=== PATIENT | female | born 1970 | race Caucasian/White ===

== ENCOUNTER 2018-05-05 14:25 | Inpatient (IN) ==
[2018-05-05] MEDS ORDERED: LACTATED RINGERS 1,000 ML IV ONE (14:50)
[2018-05-05] MEDS ORDERED: CYCLOBENZAPRINE 10 MG TABLET PO ONE (14:50)
[2018-05-05] MEDS ORDERED: ONDANSETRON 4 MG/2 ML VIAL IV ONE (14:50)
--- NOTE | 2018-05-05 14:52 | Emergency Department Note ---
General Adult HPI - General Chief complaint: Extremity Problem,Nontraumatic Stated complaint: body aches Time Seen by Provider: 05/05/18 14:38 Source: patient Mode of arrival: ambulatory Limitations: no limitations - History of Present Illness HPI Narrative: This patient complains of a lot of joint pain and nausea. She is unable to keep any of her medicines down recently. A lot of this started when a cold front came through. She had blood work done recently at [facility] for an arthritis panel which we will try to locate. Today she is complaining mainly of pain in her hips and knees and hands. Seems to be symmetrical. No abdominal pain. - Related Data Home Medications Medication Instructions Recorded Confirmed ascorbic acid (vitamin C) 1,000 mg 3 g PO QDAY tab 01/27/16 02/24/16 tablet baclofen 10 mg tablet 10 mg PO Q6H PRN tab 01/27/16 02/24/16 cyclobenzaprine 10 mg tablet 10 mg PO Q8H PRN 01/27/16 02/24/16 eletriptan HBr 20 mg tablet 20 mg PO ONCE 01/27/16 02/24/16 ferrous sulfate 325 mg (65 mg 325 mg PO QDAY tab 01/27/16 02/24/16 iron) tablet lidocaine 5 % topical patch 5 % TRANSDERMA patch 01/27/16 02/24/16 omeprazole 40 mg capsule,delayed 40 mg PO QDAY 01/27/16 02/24/16 release polyethylene glycol 3350 17 17 g PO QHS each 01/27/16 02/24/16 gram/dose oral powder promethazine 25 mg tablet 25 mg PO TID PRN tab 01/27/16 02/24/16 venlafaxine ER 37.5 mg 37.5 mg PO BID cap 01/27/16 02/24/16 capsule,extended release 24 hr Allergies Allergy/AdvReac Type Severity Reaction Status Date / Time pentazocine [From Luciano] Allergy Unknown Unknown Verified 02/24/16 09:50 tramadol Allergy Unknown Seizure Verified 02/24/16 09:50 tylenol with codeine Allergy Unknown Other Uncoded 02/24/16 09:50 Review of Systems All systems ED: reviewed and negative except as stated. Past Medical History - Past Medical History Medical history: Reports: non-contributory, arthritis, fibromyalgia - Social History smoking status: Never smoker Physical Exam All of the patient's joints seem to be tender. Limitations: no limitations General appearance: alert, anxious Head: atraumatic Eye: Present: normal appearance ENT: normal exam Neck: Present: normal inspection Chest: Present: normal inspection Respiratory: Present: normal lung sounds bilaterally Cardiovascular: Present: regular rate, normal rhythm, normal heart sounds Abdominal: Present: soft. Absent: distention, tenderness Neurological: Present: alert Psychiatric: Present: normal affect, normal mood Skin: Present: warm, dry, intact Course Vital Signs Temperature 96.7 F L 05/05/18 14:26 Pulse Rate 111 H 05/05/18 14:26 Respiratory Rate 14 05/05/18 14:26 Blood Pressure 147/98 05/05/18 14:26 Pulse Oximetry (%) 97 05/05/18 14:26 Temperature 96.7 F L 05/05/18 14:26 Pulse Rate 111 H 05/05/18 14:26 Respiratory Rate 14 05/05/18 14:26 Blood Pressure 147/98 05/05/18 14:26 Pulse Oximetry (%) 97 05/05/18 14:26 Medical Decision Making - [facility] Narrative Medical decision making narrative: This patient's sodium was 110 apparently it was 138 1 week ago. This patient has some lactated Ringer started and will be admitted to the ICU by Dr. Jorge who plans to give her hypertonic saline because of her confusion. - Lab Data Lab results reviewed: Yes I reviewed the patient's lab results. Result diagrams: 05/05/18 15:00 05/05/18 15:00 Lab Results 05/05/18 05/05/18 Range/Units 15:00 15:00 WBC 16.5 H (4.5-11.0) K/mcL RBC 4.29 (4.00-5.20) M/mcL Hgb 13.0 (12.0-15.0) g/dL Hct 38.3 (36.0-48.0) % MCV 89.2 (80.0-100.0) fL MCH 30.4 (26.0-34.0) pg MCHC 34.1 (31.0-36.0) g/dL RDW 13.8 (11.5-14.5) % Plt Count 479 H (140-440) K/mcL MPV 7.9 (7.4-10.4) fL Gran % 87.5 H (38.0-78.0) % Lymph % (Auto) 7.5 L (15.5-49.0) % [place] % (Auto) 4.9 (1.0-12.0) % Eos % (Auto) 0 (0.0-7.0) % Baso % (Auto) 0.1 (0.0-2.0) % Gran # 14.4 H (1.8-8.0) K/mcL Lymph # (Auto) 1.2 L (1.5-4.8) K/mcL [place] # (Auto) 0.8 (0.1-0.9) K/mcL Eos # (Auto) 0 (0.0-0.7) K/mcL Baso # (Auto) 0 (0.0-0.3) K/mcL Sodium 110 L* (133-145) mmol/L Potassium 3.7 (3.3-5.1) mmol/L Chloride 73 L (96-108) mmol/L Carbon Dioxide 17 L (22-30) mmol/L Anion Gap 20.0 H (8-16) BUN 4 L (6-20) mg/dl Creatinine 0.8 (0.6-1.1) mg/dl GFR Calculation 86 Glucose 140 H (70-105) mg/dL Calcium 9.1 (8.6-10.4) mg/dl Total Bilirubin 0.5 (0.0-1.0) mg/dL AST 73 H (0-37) U/l ALT 50 H (0-40) U/l Alkaline Phosphatase 123 H (39-117) U/L C-React Prot High Sens 3.7 H (1.0-3.0) mg/L Total Protein 6.7 (5.9-8.4) gm/dL Albumin 4.3 (3.2-5.2) gm/dL Globulin 2.4 (2.2-3.7) gm/dL Albumin/Globulin Ratio 1.8 (1.0-2.3) Disposition Pt seen by [employer]/PA only: No Clinical Impression: Hyponatremia Disposition: Xfer As Inpt ([facility]) Referrals: Kelsi Heredia MD [Primary Care Provider] - Time of Disposition: 16:08
[2018-05-05 15:30] LABS: Basophils # (Auto) 0 K/mcL (0.0-0.3); Basophils % (Auto) 0.1 % (0.0-2.0); Eosinophils # (Auto) 0 K/mcL (0.0-0.7); Eosinophils % (Auto) 0 % (0.0-7.0); Granulocytes % (Auto) 87.5 % (38.0-78.0); Lymphocytes # (Auto) 1.2 K/mcL (1.5-4.8); Lymphocytes % (Auto) 7.5 % (15.5-49.0); Mean Cell Volume 89.2 fL (80.0-100.0); Mean Corpuscular HGB Conc 34.1 g/dL (31.0-36.0); Mean Corpuscular Hemoglobin 30.4 pg (26.0-34.0); Monocytes # (Auto) 0.8 K/mcL (0.1-0.9); Monocytes % (Auto) 4.9 % (1.0-12.0); Platelet Count 479 K/mcL (140-440); RBC 4.29 M/mcL (4.00-5.20); Red Cell Distribution Width 13.8 % (11.5-14.5)
[2018-05-05 15:51] LABS: ALT/SGPT 50 U/l (0-40); Albumin 4.3 gm/dL (3.2-5.2); Albumin/Globulin Ratio 1.8 (1.0-2.3); Alkaline Phosphatase 123 U/L (39-117); Blood Urea Nitrogen 4 mg/dl (6-20); CRP,High Sensitivity 3.7 mg/L (1.0-3.0)
[2018-05-05] MEDS ORDERED: PROMETHAZINE 25 MG/ML VIAL IV ONE (16:09)
[2018-05-05 16:16] LABS: Appearance,Urine CLEAR; Bacteria,Urine MOD /hpf (0); Bilirubin,Urine NEG (NEG); Color,Urine YELLOW; Glucose,Urine (UA) 50 mg/dL (NEG); Leukocyte Esterase,Urine NEG /uL (NEG); Mucus,Urine FEW /hpf (0); Protein,Urine 30 mg/dL (NEG); Specific Gravity,Urine 1.013 (1.000-1.035); Urine Blood NEG mg/dL (<0.03); Urine RBC 1 /hpf (0-1); Urine Squamous Epithelial Cell 7 /hpf (0-4); Urine WBC 2 /hpf (0-4)
[2018-05-05] MEDS ORDERED: NITROGLYCERIN 0.4 MG TAB.SUBL SL PRN ×2 (17:09→17:56)
[2018-05-05 17:11] LABS: Osmolality,Urine 399 mOsm/kg (80-1000)
--- NOTE | 2018-05-05 17:29 | Cat Scan Report ---
CLINICAL INFORMATION: Elevated creatinine and decreased mental status COMPARISON: None. TECHNIQUE: 2.5 mm helical slices were obtained in the skull base to vertex. Following reconstruction, axial reformatted images were reviewed at bone and parenchymal windows. The exam was performed using radiation dose optimization techniques including, but not limited to, automated exposure control, adjustment of the mA and/or kV according to patient size and use of iterative reconstruction technique. FINDINGS: The ventricles, sulci, fissures, and cisterns are globally decreased suggesting global cerebral swelling. No extra-axial fluid collections are identified. The cerebrum, brainstem and cerebellum are unremarkable. There is no evidence of hemorrhage, mass effect, or edema. Bone windows show no osseous abnormality. IMPRESSION: Mild global cerebral swelling likely related to hyponatremia Interpreted and Authenticated by: Donte Rivera 05/05/18
--- NOTE | 2018-05-05 17:39 | Nephrology Consult Note ---
History of Present Illness - Reason for Consult Patient information: Note initiated : 05/05/18 at 5:37 pm Service Date, if different from initiated Date: [] Patient: Clare Kaur 48 y/o F admitted on for body aches. Consult date: 05/05/18 hyponatremia Requesting physician: Jesus Jorge - Chief Complaint Pain - History of Present Illness Clare Kaur is a 48-year-old female with fibromyalgia (chronic diffuse musculoskeletal pain) presented to ED for nausea and pain today and found to have electrolyte abnormalities as hyponatremia and metabolic acidosis. She received 1 L LR in ED and admitted. Nephrology consultation requested for hyponatremia. Her most recent serum sodium was 138 on 04/27/18. Most of the history was obtained from her in ED. Review of Systems Constitutional: headache(s), lethargy Nose, mouth and throat: no nasal congestion, no sore throat Cardiovascular: chest pain, no palpatations Respiratory: no cough, no hemoptysis Gastrointestinal: no constipation, no diarrhea Genitourinary: no dysuria, no hematuria Musculoskeletal: back pain, neck pain Integumentary: no rash, no wounds Neurological: no confusion, no focal weakness Psychiatric: depression, no anxiety Endocrine: no cold intolerance, no heat intolerance Hematologic/Lymphatic: no easy bleeding, no easy bruising Allergic/Immunologic: no tongue swelling, no throat swelling, no uticaria Past History Past medical history: Medical History Abdominal pain (Acute) Arthralgia of multiple joints (Chronic) Elevated rheumatoid factor (Chronic) Obesity (Chronic) Constipation (Chronic) Endometriosis (Chronic) Fibromyalgia (Chronic) Yeast infection (Chronic) Chronic pain syndrome (Chronic) Depression (Chronic) Hx of endoscopy (Chronic) Past surgical history: Social History No Social History Section defined Past family history: Family History paternal grandmother Malignant neoplasm of colon paternal grandfather Malignant neoplasm of colon Malignant neoplasm of prostate maternal grandmother Alzheimer's disease maternal grandfather Myocardial Infarction Past social history: Social History No Social History Section defined Medications and Allergies Home Medications Medication Instructions Recorded Confirmed Type baclofen 10 mg tablet 10 mg PO Q6H PRN tab 01/27/16 05/05/18 History ferrous sulfate 325 mg (65 mg 325 mg PO QDAY tab 01/27/16 05/05/18 History iron) tablet lidocaine 5 % topical patch 5 % TRANSDERMA DAILY patch 01/27/16 05/05/18 History omeprazole 40 mg capsule,delayed 40 mg PO QDAY 01/27/16 05/05/18 History release promethazine 25 mg tablet 25 mg PO TID PRN tab 01/27/16 05/05/18 History Allergies Allergy/AdvReac Type Severity Reaction Status Date / Time pentazocine [From Talwin] Allergy Unknown Unknown Verified 02/24/16 09:50 tramadol Allergy Unknown Seizure Verified 02/24/16 09:50 tylenol with codeine Allergy Unknown Other Uncoded 02/24/16 09:50 Exam - Vital Signs Vital signs: Temp Pulse Resp BP Pulse Ox 96.7 F L 95 H 20 128/67 97 05/05/18 14:26 05/05/18 16:43 05/05/18 16:43 05/05/18 16:43 05/05/18 16:43 - General Appearance General appearance: chronically ill, fatigue EENT: mucous membranes moist Neck: supple Respiratory: clear Cardiology: no edema Gastrointestinal: no tenderness Integumentary: warm and dry Neurologic: no focal deficit, alert and oriented x3 Musculoskeletal: no deformities Psychiatric: depressed, cooperative Results - Lab Results 05/05/18 15:00 05/05/18 16:36 Most recent lab results Calcium 9.1 mg/dl (8.6-10.4) 05/05/18 15:00 Assessment and Plan (1) Hyponatremia Hyponatremia, acute, possibly symptomatic, present on arrival. Work up: Labs (05/05/18 at 15:00): Serum Sodium 110, Urine Osmolality 399, Urine Sodium 60. Labs (05/05/18 at 16:36): Serum Sodium 115, Serum Osmolality 239 Urinalysis (05/05/18): Yellow, Clear, pH 6.0, SG 1.013, Protein 30, occult blood negative. Altered mental status reported in ED. Neurologic examination unremarkable at the time of my evaluation. No obvious etiology like intoxication. Initial work up consistent with SIADH with elevated urine osmolality and urine sodium, but improvement with LR. Recommendations: 1/2 Ns at 100 ml hour and follow up BMP every 4-6 hours. Target correction rate of 10 mEq/24hr. Status: Acute Priority: High (2) Metabolic acidosis at 15:00: High anion gap Serum AG = 110 - (73 + 17) = 20 DELTA AG/DELTA HCO3 RATIO 20-12/24-17 = 8/7 at 16:36: Normal anion gap, metabolic acidosis improved Serum AG = 115 - (81 + 21) = 13 Serum osmolal gap 0.96 Status: Acute Priority: High
[2018-05-05] MEDS ORDERED: 0.9 % SODIUM CHLORIDE 1,000 ML IV SCH ×2 (17:56→18:14)
[2018-05-05] MEDS ORDERED: ASPIRIN 81 MG TAB.CHEW CHEWED ONE (17:56)
[2018-05-05] MEDS ORDERED: NALOXONE HCL 0.4 MG/ML VIAL IV PRN (17:56)
[2018-05-05] MEDS ORDERED: ONDANSETRON 4 MG/2 ML VIAL IV PRN (17:56)
[2018-05-05] MEDS ORDERED: ACETAMINOPHEN 325 MG TABLET PO PRN (17:56)
[2018-05-05] MEDS ORDERED: ASPIRIN 81 MG TAB.CHEW ONE (17:58)
[2018-05-05] MEDS ORDERED: NITROGLYCERIN 0.4 MG TAB.SUBL SL ONE (17:58)
[2018-05-05] MEDS ORDERED: NITROGLYCERIN 1 GM OINT.TOP ONE (18:06)
[2018-05-05 18:09] LABS: Blood Urea Nitrogen 4 mg/dl (6-20); Uric Acid 3.2 mg/dL (2.5-8.0)
[2018-05-05] MEDS ORDERED: POTASSIUM CHLORIDE 40 MEQ in DEXTROSE 5% IN WATER 500 ML IV ONE (18:31)
[2018-05-05] MEDS ORDERED: 0.45 % SODIUM CHLORIDE 1,000 ML IV SCH (18:45)
[2018-05-05] MEDS ORDERED: MAG HYDROX/AL HYDROX/SIMETH 30 ML ORAL.SUSP PO PRN (19:06)
[2018-05-05] MEDS: PIPERACILLIN SODIUM/TAZOBACTAM 3.375 GM in DEXTROSE 5% IN WATER 50 ML IV SCH (19:11)
--- NOTE | 2018-05-05 19:11 | Ultrasound Report ---
CLINICAL INFORMATION: Increased LFTs COMPARISON: None. FINDINGS: Liver is normal in size, configuration and echotexture without focal lesion. The gallbladder is surgically absent. Common bile is normal caliber 6 mm. Pancreas is normal. No free fluid IMPRESSION: Normal liver, bile ducts and pancreas Interpreted and Authenticated by: Donte Rivera 05/05/18
--- NOTE | 2018-05-05 19:32 | XRay Report ---
CLINICAL INFORMATION: Chest pain COMPARISON: None. FINDINGS: Heart size, mediastinum and pulmonary vessels are normal. There is minimal bibasilar atelectasis. No infiltrates or effusions. Bones and soft tissues normal IMPRESSION: Minimal bibasilar atelectasis Interpreted and Authenticated by: Donte Rivera 05/05/18
[2018-05-05] MEDS ORDERED: POTASSIUM CHLORIDE 20 MEQ/10 ML VIAL IV ONE (19:43)
[2018-05-05 19:48] LABS: Blood Urea Nitrogen 3 mg/dl (6-20)
[2018-05-05] MEDS: PANTOPRAZOLE 40 MG VIAL IV SCH (19:50)
[2018-05-05] MEDS ORDERED: DEXTROSE 5% IN WATER 1,000 ML IV SCH (20:45)
--- NOTE | 2018-05-05 21:01 | Internal Med History&Physical ---
Medical - H&P: HPI Patient information: Note initiated : 05/05/18 at 8:57 pm Service Date, if different from initiated Date: [] Patient: Clare Kaur a 48 y/o F admitted on 05/05/18 for body aches. Chief Complaint: [] History of present illness: Ms. Kaur is a 48 year old F she has a history of fibromyalgia, that gets worse with changes in weather pattern according to the patient as well as her . The patient presents to the hospital today with not feeling well for the last week or so. The patient has had decreased oral intake for the last couple of days. Today the noticed that in addition to her usual exacerbation of pain due to fibromyalgia she was also altered. According to the she has a history of low sodium values and sometimes gets altered when that happens he therefore brought the patient to the emergency room for further evaluation. In the emergency room the patient was noted to be in significant pain and did not provide much history to myself or to the ER provider. Much of the history was obtained by talking to the patient's . The patient during my evaluation complained about severe substernal chest pain, this pain had started after she had presented to the ED on talking to the patient and , EKG showed T-wave inversions in lead I and aVL, no ST segment elevation. The patient had significantly low sodium at 110, potassium was 3.7, bicarb 17 creatinine 0.8 and glucose at 140. Her anion gap was 20. The patient had elevated CRP her WBC count was 16 hemoglobin 13 platelets 479, pro calcitonin was negative. Given that she had some confusion and acutely low- sodium she was admitted to the hospital for further management. The patient had a normal sodium 1 week ago. Later in the hospital the patient chest pain continued, her troponin was noted to be elevated at 0.2, patient received aspirin and sublingual nitro as well as a nitro patch the patient's symptoms gradually improved to a point where she had no longer any chest pain. Patient underwent a repeat troponin that was 0.17. EKG unchanged since admission. Case was discussed with Dr. Kaur inspector paper products in [place] who advised that patient does not seem to have an acute coronary event may have had a coronary spasm. But in light of chest pain with mildly elevated troponins the stratification and further testing is warranted. Given that we do not have nuclear stress test in this facility, he advised to consider some kind for testing. I informed him that we do have echocardiogram as well as CT coronary angiogram. He noted that if these tests are negative and the patient does not have any further chest pain then she could follow-up as an outpatient with cardiology for further evaluation. Should the patient develop further chest pain then he would reconsider transferring the patient for an urgent cath. Nephrology was consulted for management of hyponatremia. ROS unobtainable: due to mental status Medical - H&P: PMH Medical history: Medical History Abdominal pain (Acute) Arthralgia of multiple joints (Chronic) Elevated rheumatoid factor (Chronic) Obesity (Chronic) Constipation (Chronic) Endometriosis (Chronic) Fibromyalgia (Chronic) Yeast infection (Chronic) Chronic pain syndrome (Chronic) Depression (Chronic) Hx of endoscopy (Chronic) Surgical history: Past Surgical History History of bilateral tubal ligation (Chronic) Hx of exploratory laparotomy (Chronic) Hx of hysterectomy with oophorectomy (Chronic) Pertinent family history: Family History paternal grandmother Malignant neoplasm of colon paternal grandfather Malignant neoplasm of colon Malignant neoplasm of prostate maternal grandmother Alzheimer's disease maternal grandfather Myocardial Infarction Medical - H&P: Meds Home Medications Medication Instructions Recorded Confirmed Type baclofen 10 mg tablet 10 mg PO Q6H PRN tab 01/27/16 05/05/18 History ferrous sulfate 325 mg (65 mg 325 mg PO QDAY tab 01/27/16 05/05/18 History iron) tablet lidocaine 5 % topical patch 5 % TRANSDERMA DAILY patch 01/27/16 05/05/18 History omeprazole 40 mg capsule,delayed 40 mg PO QDAY 01/27/16 05/05/18 History release promethazine 25 mg tablet 25 mg PO TID PRN tab 01/27/16 05/05/18 History Allergies Allergy/AdvReac Type Severity Reaction Status Date / Time pentazocine [From Luciano] Allergy Unknown Unknown Verified 02/24/16 09:50 tramadol Allergy Unknown Seizure Verified 02/24/16 09:50 tylenol with codeine Allergy Unknown Other Uncoded 02/24/16 09:50 Medical - H&P: Exam - Constitutional Vitals: Temp Pulse Resp BP Pulse Ox 99.2 F H 81 16 108/73 100 05/05/18 19:53 05/05/18 17:52 05/05/18 20:31 05/05/18 20:31 05/05/18 20:31 Exam: GENERAL: The patient is a well-developed, well-nourished in moderate distress. Is alert and oriented x3. VITAL SIGNS: Reviewed and as noted elsewhere. HEENT: Head is normocephalic and atraumatic. Extraocular muscles are intact. Pupils are equal, round, and reactive to light. Nares appeared normal. Mouth appears any without lesions. Mucous membranes are dry. NECK: Normal to inspection, Supple, No lymphadenopathy or thyromegaly. LUNGS: Air entry equal on both sides, no wheezing, crackles or rhonchi noted. No accessory muscles of respiration HEART: Regular rate and rhythm normal, S1 and S2 heard, no Gallop, S3 or Rub Noted, No Gross murmur heard. ABDOMEN: Soft, epigastric tenderness present, no guarding no rigidity no rebound. Abdomen is nondistended. Positive bowel sounds. No hepatosplenomegaly was noted. EXTREMITIES: No cyanosis, clubbing, rash, lesions or edema. NEUROLOGIC: Cranial nerves II through XII are grossly intact. Motor and Sensory System Grossly Intact PSYCHIATRIC: Normal affect, Normal Mood. Appropriate Behavior. She did appear in distress SKIN: No ulceration or wounds noted, No jaundice, No rash noted. Medical - H&P: Reslt - Labs CBC & Chem 7: 05/05/18 15:00 05/05/18 18:48 Labs: Short CBC 05/05/18 Range/Units 15:00 WBC 16.5 H (4.5-11.0) K/mcL Hgb 13.0 (12.0-15.0) g/dL Hct 38.3 (36.0-48.0) % Plt Count 479 H (140-440) K/mcL BMP 05/05/18 05/05/18 05/05/18 15:00 16:36 18:48 Sodium 110 L* 115 L* 117 L* Potassium 3.7 3.7 3.6 Chloride 73 L 81 L 81 L Carbon Dioxide 17 L 21 L 21 L BUN 4 L 4 L 3 L Creatinine 0.8 0.6 0.8 Glucose 140 H 119 H 103 Calcium 9.1 9.2 9.1 Cardiac Enzymes 05/05/18 05/05/18 Range/Units 15:00 18:48 Troponin T 0.20 H* 0.17 H* (0-0.03) ng/ml Liver Function 05/05/18 Range/Units 15:00 Total Bilirubin 0.5 (0.0-1.0) mg/dL AST 73 H (0-37) U/l ALT 50 H (0-40) U/l Alkaline Phosphatase 123 H (39-117) U/L Albumin 4.3 (3.2-5.2) gm/dL Urine 05/05/18 Range/Units 15:40 Urine Color Yellow Urine Appearance Clear Urine pH 6.0 (5.0-9.0) Ur Specific [place] 1.013 (1.000-1.035) Urine Protein 30 A (NEG) mg/dL Urine Glucose (UA) 50 A (NEG) mg/dL Medical - H&P: A/P - Narrative A/P Narrative: A/P Acute chest pain- etiology? resolved with NTG, asa given, d/c ntg for now, monitor, troponin trending down, should she have recurrence of cp, will need to consider xfer to higher center. If remains asymptomatic, will get echo in AM and CT angio cornoaries. Get a1c and lipid panel in AM Hyponatremia- Na was normal 1 week ago, urine osm 399, urine sodium 60, this suggests siadh, but she also had elevated gap on presentation, denies etoh/ antifreeze consumption. osm gap not elevated, nephrology consulted, sodium to be monitored closely, goal correction 10meq over 24 hrs. I am not certain of the etiology of her acute drop at this time, her tsh is neg, cortisol is normal ADH secretion secondary to severe pain? fibromyalgia- monitor, has outpatient follow up with dr birmingham continue same patient in PCU status due to acute hyponatremia with confusion, spent > 75 mins coordinating care, monitoring labs, chart review, and rendering critical care to the patient. 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
[2018-05-05] MEDS: HEPARIN 5,000 UNIT/ML VIAL SQ SCH (21:14)
[2018-05-05] MEDS ORDERED: cefTRIAXone 1 GM VIAL IV SCH (23:00)
[2018-05-05 23:24] LABS: Blood Urea Nitrogen 4 mg/dl (6-20)
[2018-05-05] MEDS ORDERED: DESMOPRESSIN ACETATE 2 MCG in 0.9 % SODIUM CHLORIDE 50 ML IV ONE (23:29)
[2018-05-05] MEDS ORDERED: cefTRIAXone 1 GM VIAL ONE (23:47)
[2018-05-05] MEDS: 0.9 % SODIUM CHLORIDE 10 ML SYRINGE IV SCH (23:49)
[2018-05-06] MEDS: PIPERACILLIN SODIUM/TAZOBACTAM 3.375 GM in DEXTROSE 5% IN WATER 50 ML IV SCH ×4 (00:33→17:00)
[2018-05-06 02:31] LABS: Basophils # (Auto) 0 K/mcL (0.0-0.3); Basophils % (Auto) 0.4 % (0.0-2.0); Eosinophils # (Auto) 0 K/mcL (0.0-0.7); Eosinophils % (Auto) 0.2 % (0.0-7.0); Granulocytes % (Auto) 67.4 % (38.0-78.0); Lymphocytes % (Auto) 23.8 % (15.5-49.0); Mean Cell Volume 89.2 fL (80.0-100.0); Mean Corpuscular HGB Conc 33.6 g/dL (31.0-36.0); Monocytes # (Auto) 0.7 K/mcL (0.1-0.9); Monocytes % (Auto) 8.2 % (1.0-12.0); Platelet Count 348 K/mcL (140-440); RBC 3.77 M/mcL (4.00-5.20); Red Cell Distribution Width 13.8 % (11.5-14.5)
[2018-05-06 02:46] LABS: ALT/SGPT 41 U/l (0-40); Albumin 3.5 gm/dL (3.2-5.2); Albumin/Globulin Ratio 1.8 (1.0-2.3); Alkaline Phosphatase 102 U/L (39-117); Bilirubin,Direct < 0.2 mg/dL (0.0-0.3); Blood Urea Nitrogen 4 mg/dl (6-20); Estimated Average Glucose(eAG) 97 mg/dL; Gamma Glutamyl Transpeptidase 123 U/L (5-36); HDL Cholesterol 61 mg/dl (>40); LDL Cholesterol,Calculated 53 mg/dl (SEE CHART); Uric Acid 3.3 mg/dL (2.5-8.0)
[2018-05-06] MEDS ORDERED: DESMOPRESSIN ACETATE 2 MCG in 0.9 % SODIUM CHLORIDE 50 ML IV ONE (03:06)
[2018-05-06] MEDS: BACLOFEN 10 MG TABLET PO SCH ×4 (03:10→21:05)
[2018-05-06] MEDS ORDERED: DEXTROSE 5% IN WATER 1,000 ML IV SCH ×3 (03:20→06:52)
[2018-05-06] MEDS: LIDOCAINE 5 GM CREAM.TOP TOPICAL SCH ×2 (03:52→10:47)
[2018-05-06] MEDS: PROMETHAZINE 25 MG/ML VIAL IV PRN ×3 (03:52→22:01)
[2018-05-06] MEDS ORDERED: ACETAMINOPHEN 1,000 MG/100 ML BOTTLE IV PRN ×2 (05:52→12:26)
[2018-05-06] MEDS: 0.9 % SODIUM CHLORIDE 10 ML SYRINGE IV SCH ×3 (06:05→21:07)
[2018-05-06] MEDS ORDERED: LORazepam 2 MG/ML VIAL IV PRN (06:11)
--- NOTE | 2018-05-06 06:39 | Nephrology Progress Note ---
Subjective Patient information: Note initiated : 05/06/18 at 6:37 am Clare Kaur is a 48-year-old female with fibromyalgia (chronic diffuse musculoskeletal pain) admitted on 05/05/18. Nephrology consultation requested for hyponatremia. Chief Complaint: Pain. Principal diagnosis: Hyponatremia Interval history: Improvement of hyponatremia Pertinent ROS: Pain Weakness Objective - Vital Signs Vital signs: Vital Signs Temp Pulse Resp BP BP Pulse Ox 05/06/18 06:00 21 126/84 97 05/06/18 05:00 16 101/73 97 05/06/18 04:00 19 125/77 98 05/06/18 03:00 16 96/68 97 05/06/18 02:01 17 95/66 96 05/06/18 01:01 16 99/67 93 05/06/18 00:34 18 112/78 96 05/06/18 00:01 98.8 F 17 87/59 95 05/06/18 00:00 96 05/05/18 23:31 18 88/61 94 05/05/18 23:01 16 90/62 94 05/05/18 22:30 17 92/70 94 05/05/18 22:01 17 93/62 96 05/05/18 21:31 17 97/64 99 05/05/18 21:01 18 99/68 97 05/05/18 21:00 20 99/68 96 05/05/18 20:31 16 108/73 100 05/05/18 20:16 16 106/95 05/05/18 20:00 19 107/72 99 05/05/18 19:54 21 105/70 98 05/05/18 19:53 99.2 F H 20 105/70 97 05/05/18 18:30 98 05/05/18 18:11 27 H 120/75 05/05/18 18:08 99 F 20 116/80 100 05/05/18 18:07 99 F 20 116/80 100 05/05/18 18:06 23 H 122/97 100 05/05/18 18:00 28 H 119/93 96 05/05/18 17:52 81 27 H 116/80 100 05/05/18 17:40 96.7 F L 95 H 20 147/98 97 05/05/18 16:43 95 H 20 128/67 97 05/05/18 14:26 96.7 F L 111 H 14 147/98 97 Intake and Output 05/05/18 05/06/18 05/06/18 21:59 05:59 13:59 Intake Total 1205 / 1205 611.0 / 611.0 100 / 100 Output Total 2130 / 2130 1555 / 1555 55 / 55 Balance -925 / -925 -944.0 / -944.0 45 / 45 Intake: IV 1205 / 1205 151.0 / 151.0 100 / 100 Sodium Chloride 0.45% 1,000 ml 155 / 155 @ 100 mls/hr IV .Q10H [facility] Rx#: [id number] Ddavp 2 Mcg In Sodium Chloride 101.0 / 101.0 0.9% 50 ml @ 200 mls/hr IV ONCE ONE Rx#:[id number] Lactated Ringers 1,000 ml @ 1000 / 1000 Wide Open IV BOLUS ONE Rx#: [id number] Zosyn 3.375 gm In Dextrose 5% 50 / 50 50 / 50 in Water 50 ml @ 100 mls/hr IV Q6H [facility] Rx#:[id number] Oral 460 / 460 Output: Urine Catheter Amount 1880 / 1880 1555 / 1555 55 / 55 Void Amount 250 / 250 # of times incontinent of urine 0 / 0 Other: Meal 1/2 banana # Voids 1 Weight 174 lb 9.6 oz Intake & Output: Intake & Output 05/05/18 05/06/18 05/06/18 21:59 05:59 13:59 Intake Total 1205 / 1205 611.0 / 611.0 100 / 100 Output Total 2130 / 2130 1555 / 1555 55 / 55 Balance -925 / -925 -944.0 / -944.0 45 / 45 Weight 174 lb 9.6 oz Intake: IV 1205 / 1205 151.0 / 151.0 100 / 100 Sodium Chloride 0.45% 1,000 ml 155 / 155 @ 100 mls/hr IV .Q10H [facility] Rx#: [id number] Ddavp 2 Mcg In Sodium Chloride 101.0 / 101.0 0.9% 50 ml @ 200 mls/hr IV ONCE ONE Rx#:[id number] Lactated Ringers 1,000 ml @ 1000 / 1000 Wide Open IV BOLUS ONE Rx#: [id number] Zosyn 3.375 gm In Dextrose 5% 50 / 50 50 / 50 in Water 50 ml @ 100 mls/hr IV Q6H [facility] Rx#:[id number] Oral 460 / 460 Output: Urine Catheter Amount 1880 / 1880 1555 / 1555 55 / 55 Void Amount 250 / 250 # of times incontinent of urine 0 / 0 Other: Meal 1/2 banana # Voids 1 - General Appearance General appearance: chronically ill, fatigue EENT: mucous membranes moist Neck: supple Respiratory: no kyphosis Cardiology: no edema, regular rate, regular rhythm Gastrointestinal: no tenderness Integumentary: no rash, warm and dry Neurologic: no focal deficit, alert and oriented x3 Musculoskeletal: no deformities Psychiatric: depressed, cooperative - Lab 05/06/18 02:00 05/06/18 06:00 Most recent lab results Calcium 8.8 mg/dl (8.6-10.4) 05/06/18 02:00 Phosphorus 2.5 mg/dL (2.7-4.5) L 05/06/18 02:00 Magnesium 1.8 mg/dL (1.6-2.5) 05/06/18 02:00 Assessment and Plan (1) Hyponatremia Hyponatremia, acute, possibly initially symptomatic, present on arrival, improved. Initial work up consistent with SIADH with elevated urine osmolality and urine sodium. No obvious etiology like intoxication. Avoid NS in infusions. Anticipate improvement. Nephrology will sign off. Status: Acute Priority: Medium (2) Metabolic acidosis Status: Resolved Priority: Medium
[2018-05-06 06:45] LABS: Blood Urea Nitrogen 6 mg/dl (6-20)
[2018-05-06] MEDS: PANTOPRAZOLE 40 MG VIAL IV SCH ×2 (07:43→16:59)
[2018-05-06] MEDS: HEPARIN 5,000 UNIT/ML VIAL SQ SCH ×2 (10:58→21:06)
[2018-05-06 11:13] LABS: Blood Urea Nitrogen 6 mg/dl (6-20)
[2018-05-06] MEDS ORDERED: SUMAtriptan SUCCINATE 50 MG TABLET PO PRN (11:29)
[2018-05-06] MEDS ORDERED: NITROGLYCERIN 0.4 MG TAB.SUBL SL PRN (12:26)
[2018-05-06] MEDS ORDERED: MAG HYDROX/AL HYDROX/SIMETH 30 ML ORAL.SUSP PO PRN (12:26)
[2018-05-06] MEDS ORDERED: ACETAMINOPHEN 325 MG TABLET PO PRN (12:26)
[2018-05-06] MEDS ORDERED: ONDANSETRON 4 MG/2 ML VIAL IV PRN (12:26)
[2018-05-06] MEDS ORDERED: NALOXONE HCL 0.4 MG/ML VIAL IV PRN (12:26)
[2018-05-06 12:47] LABS: Amphetamine Screen,Urine NONE DETECTED (NONDETECTED); Benzodiazepines Screen,Urine NONE DETECTED (NONDETECTED); Cocaine Screen,Urine NONE DETECTED (NONDETECTED); Opiate Screen,Urine SUSPECT POSITIVE (NONDETECTED); Oxycodone, Urine Screen NONE DETECTED (NONDETECTED)
[2018-05-06 12:52] LABS: Osmolality,Urine 509 mOsm/kg (80-1000)
--- NOTE | 2018-05-06 13:28 | Internal Med Progress Note ---
Medical - PN: Subj Patient information: Note initiated : 05/06/18 at 1:26 pm Service Date, if different from initiated Date: [] Patient: Clare Kaur a 48 y/o F admitted on 05/05/18 for body aches. Chief Complaint: [] Interval history: Ms. Kaur is a 48 year old F she has a history of fibromyalgia, that gets worse with changes in weather pattern according to the patient as well as her . The patient presents to the hospital today with not feeling well for the last week or so. The patient has had decreased oral intake for the last couple of days. Today the noticed that in addition to her usual exacerbation of pain due to fibromyalgia she was also altered. According to the she has a history of low sodium values and sometimes gets altered when that happens he therefore brought the patient to the emergency room for further evaluation. In the emergency room the patient was noted to be in significant pain and did not provide much history to myself or to the ER provider. Much of the history was obtained by talking to the patient's . The patient during my evaluation complained about severe substernal chest pain, this pain had started after she had presented to the ED on talking to the patient and , EKG showed T-wave inversions in lead I and aVL, no ST segment elevation. The patient had significantly low sodium at 110, potassium was 3.7, bicarb 17 creatinine 0.8 and glucose at 140. Her anion gap was 20. The patient had elevated CRP her WBC count was 16 hemoglobin 13 platelets 479, pro calcitonin was negative. Given that she had some confusion and acutely low- sodium she was admitted to the hospital for further management. The patient had a normal sodium 1 week ago. Later in the hospital the patient chest pain continued, her troponin was noted to be elevated at 0.2, patient received aspirin and sublingual nitro as well as a nitro patch the patient's symptoms gradually improved to a point where she had no longer any chest pain. Patient underwent a repeat troponin that was 0.17. EKG unchanged since admission. Case was discussed with Dr. Kaur jewelry model maker in [place] who advised that patient does not seem to have an acute coronary event may have had a coronary spasm. But in light of chest pain with mildly elevated troponins the stratification and further testing is warranted. Given that we do not have nuclear stress test in this facility, he advised to consider some kind for testing. I informed him that we do have echocardiogram as well as CT coronary angiogram. He noted that if these tests are negative and the patient does not have any further chest pain then she could follow-up as an outpatient with cardiology for further evaluation. Should the patient develop further chest pain then he would reconsider transferring the patient for an urgent cath. Nephrology was consulted for management of hyponatremia. 05/06 Patient seen and examined, complains of generalized pain, still has bilateral lower extremity pain this is a chronic pain for her. She did not have any recurrent chest pain. Echo was done which shows low normal ejection fraction normal left ventricular size, no regional wall motion abnormalities. CT angios of the heart is pending. The patient sodium overcorrected yesterday went eyes are has 126, patient was given desmopressin and D5 water, patient's sodium back down to 119. Will reassess and have close monitoring of the changes in patient's sodium. Apparently nephrology has signed out. Pertinent ROS: cr migrane headache present Denies chest pain, palpitations Denies cough or shortness of breath Denies abdominal pain, nausea or vomiting. usama knee pain, generalized aches - Constitutional Vitals: Vital Signs Temp Pulse Resp BP Pulse Ox 98.8 F 95 H 20 139/105 100 05/06/18 12:00 05/06/18 11:02 05/06/18 12:00 05/06/18 12:00 05/06/18 12:00 Period Temp Pulse Resp BP Sys/Malik Pulse Ox Last 24 Hr 96.7 F-99.2 F 68-112 14-31 87-147/59-105 92-100 Intake and Output 05/05/18 05/06/18 05/06/18 21:59 05:59 13:59 Intake Total 1205 / 1205 611.0 / 611.0 1618 / 1618 Output Total 2130 / 2130 1555 / 1555 405 / 405 Balance -925 / -925 -944.0 / -944.0 1213 / 1213 Weight 174 lb 9.6 oz Intake & Output: Intake & Output 05/05/18 05/06/18 05/06/18 21:59 05:59 13:59 Intake Total 1205 / 1205 611.0 / 611.0 1618 / 1618 Output Total 2130 / 2130 1555 / 1555 405 / 405 Balance -925 / -925 -944.0 / -944.0 1213 / 1213 Weight 174 lb 9.6 oz Intake: IV 1205 / 1205 151.0 / 151.0 988 / 988 Sodium Chloride 0.45% 1,000 ml 155 / 155 @ 100 mls/hr IV .Q10H [facility] Rx#: [id number] Ddavp 2 Mcg In Sodium Chloride 101.0 / 101.0 0.9% 50 ml @ 200 mls/hr IV ONCE ONE Rx#:[id number] Dextrose 5% in Water 1,000 ml @ 268 / 268 75 mls/hr IV .[id number] [facility] Rx#: [id number] Lactated Ringers 1,000 ml @ 1000 / 1000 Wide Open IV BOLUS ONE Rx#: [id number] Zosyn 3.375 gm In Dextrose 5% 50 / 50 50 / 50 100 / 100 in Water 50 ml @ 100 mls/hr IV Q6H [facility] Rx#:[id number] Oral 460 / 460 630 / 630 Output: Urine Catheter Amount 1880 / 1880 1555 / 1555 405 / 405 Void Amount 250 / 250 # of times incontinent of urine 0 / 0 Other: Meal 1/2 banana Lunch Percent of Meal Consumed 50% # Voids 1 Exam: Constitutional; Afebrile, cooperative, alert, not in distress. Eyes- No icterus, , No periorbital swelling Ears- Ext ear normal, hearing normal to conversation. Neck- Midline trachea, supple Respiratory system: Air Entry equal on both sides, No crackles or wheezing, no rhonchi. CVS- Rate rhythm regular, S1,S2 heard, no gallop, no rub. 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 Medical - PN: Obj Da - Labs CBC & Chem 7: 05/06/18 02:00 05/06/18 10:17 Labs: Abnormal Lab Results 05/06/18 05/06/18 05/06/18 11:58 10:17 06:00 WBC RBC Hgb Hct Plt Count Gran % Lymph % (Auto) Gran # Lymph # (Auto) Sodium 119 L* 124 L Chloride 87 L 90 L Carbon Dioxide 20 L Anion Gap BUN Glucose 108 H 117 H Osmolality Phosphorus GGT AST ALT Alkaline Phosphatase Lactate Dehydrogenase Troponin T C-React Prot High Sens Total Protein Globulin Urine Protein Urine Glucose (UA) Urine Ketones Urine Nitrate Urine Urobilinogen Ur Squamous Epith Cells Urine Bacteria Urine Opiates Screen Suspect positive A U Marijuana (THC) Screen Suspect positive A 05/06/18 05/06/18 05/05/18 02:00 02:00 22:30 WBC RBC 3.77 L Hgb 11.3 L Hct 33.7 L Plt Count Gran % Lymph % (Auto) Gran # Lymph # (Auto) Sodium 126 L 125 L Chloride 93 L 92 L Carbon Dioxide 21 L Anion Gap BUN 4 L 4 L Glucose 113 H Osmolality Phosphorus 2.5 L GGT 123 H AST 58 H ALT 41 H Alkaline Phosphatase Lactate Dehydrogenase 261 H Troponin T C-React Prot High Sens Total Protein 5.4 L Globulin 1.9 L Urine Protein Urine Glucose (UA) Urine Ketones Urine Nitrate Urine Urobilinogen Ur Squamous Epith Cells Urine Bacteria Urine Opiates Screen U Marijuana (THC) Screen 05/05/18 05/05/18 05/05/18 18:48 18:48 16:36 WBC RBC Hgb Hct Plt Count Gran % Lymph % (Auto) Gran # Lymph # (Auto) Sodium 117 L* 115 L* Chloride 81 L 81 L Carbon Dioxide 21 L 21 L Anion Gap BUN 3 L 4 L Glucose 119 H Osmolality 239 L Phosphorus GGT AST ALT Alkaline Phosphatase Lactate Dehydrogenase Troponin T 0.17 H* C-React Prot High Sens Total Protein Globulin Urine Protein Urine Glucose (UA) Urine Ketones Urine Nitrate Urine Urobilinogen Ur Squamous Epith Cells Urine Bacteria Urine Opiates Screen U Marijuana (THC) Screen 05/05/18 05/05/18 05/05/18 15:40 15:00 15:00 WBC RBC Hgb Hct Plt Count Gran % Lymph % (Auto) Gran # Lymph # (Auto) Sodium 110 L* Chloride 73 L Carbon Dioxide 17 L Anion Gap 20.0 H BUN 4 L Glucose 140 H Osmolality Phosphorus GGT AST 73 H ALT 50 H Alkaline Phosphatase 123 H Lactate Dehydrogenase Troponin T 0.20 H* C-React Prot High Sens 3.7 H Total Protein Globulin Urine Protein 30 A Urine Glucose (UA) 50 A Urine Ketones 80 A Urine Nitrate Pos A Urine Urobilinogen 2.0 A Ur Squamous Epith Cells 7 H Urine Bacteria Mod A Urine Opiates Screen U Marijuana (THC) Screen 05/05/18 15:00 WBC 16.5 H RBC Hgb Hct Plt Count 479 H Gran % 87.5 H Lymph % (Auto) 7.5 L Gran # 14.4 H Lymph # (Auto) 1.2 L Sodium Chloride Carbon Dioxide Anion Gap BUN Glucose Osmolality Phosphorus GGT AST ALT Alkaline Phosphatase Lactate Dehydrogenase Troponin T C-React Prot High Sens Total Protein Globulin Urine Protein Urine Glucose (UA) Urine Ketones Urine Nitrate Urine Urobilinogen Ur Squamous Epith Cells Urine Bacteria Urine Opiates Screen U Marijuana (THC) Screen Meds: Medications Acetaminophen (Tylenol) 650 mg PO Q4-6HP PRN PRN Reason: PAIN/FEVER > 101 Al Hydrox/Mg Hydrox/Simethicone (Maalox) 30 ml PO Q4-6HP PRN PRN Reason: Dyspepsia Baclofen (Lioresal) 10 mg PO TID [facility] Ceftriaxone Sodium (Rocephin) 1 gm IV DAILY [facility] Heparin Sodium (Porcine) (Heparin) 5,000 unit SQ Q12 [facility] Acetaminophen (Ofirmev) 1,000 mg in 100 mls @ 200 mls/hr IV Q6HP PRN PRN Reason: PAIN/FEVER > 101 Piperacillin Sod/Tazobactam (Sod 3.375 gm/ Dextrose) 50 mls @ 100 mls/hr IV Q6H [facility] Lidocaine (Lidocaine 5% Oint) 1 dose TOPICAL DAILY [facility] Lorazepam (Ativan) 0.5 mg IV Q2HP PRN PRN Reason: ANXIETY/SEDATION Morphine Sulfate (Morphine) 4 mg IV Q1HP PRN PRN Reason: PAIN LEVEL > 6 Naloxone HCl (Narcan) 0.1 mg IV Q2MIN PRN PRN Reason: Opiate Reversal Nitroglycerin (Nitrostat) 0.4 mg SL Q5M PRN PRN Reason: Chest Pain Ondansetron HCl (Zofran) 4 mg IV Q4-6HP PRN PRN Reason: Nausea And Vomiting Pantoprazole Sodium (Protonix) 40 mg IV BIDAC [facility] Promethazine HCl (Phenergan) 12.5 mg IV Q4-6HP PRN PRN Reason: Nausea And Vomiting Sodium Chloride (Saline Flush) 10 ml IV Q8 [facility] Sumatriptan Succinate (Imitrex) 50 mg PO PRN PRN PRN Reason: Migraine Headache Medical - PN: A/P - Time Spent With Patient Total time spent is greater than 50% in coordination of care (as documented) at patient's floor/unit and/or counseling patient: - Narrative A/P Narrative: A/P Acute chest pain- etiology? resolved with NTG, asa given, a1c neg for dm, lipid profile good, ldl < 70, echo neg, await coronorary angiogram CT, outpatietn cardiology eval, will start on asa 81 Hyponatremia- check utox, siadh from pain ? sodium this AM 119, had gone as high as 126, goal is 10-12meq over 24 hrs. desmopressin to avoid overcorrection. fibromyalgia- monitor, has outpatient follow up with dr birmingham continue same, lidocane ointment for topical application migraine- sumatriptan xfer to tele status regular diet full code Medical - PN: Qual - VTE Deep Vein Thrombosis/Pulmonary Embolism Present on Admission: No
[2018-05-06] MEDS ORDERED: cefTRIAXone 1 GM VIAL IV SCH (15:00)
[2018-05-06] MEDS: cefTRIAXone 1 GM VIAL IV SCH (15:14)
[2018-05-06] MEDS: SUMAtriptan SUCCINATE 50 MG TABLET PO PRN (15:15)
[2018-05-06 15:16] LABS: Blood Urea Nitrogen 5 mg/dl (6-20)
[2018-05-06] MEDS: 0.9 % SODIUM CHLORIDE 1,000 ML IV SCH (15:40)
[2018-05-06] MEDS: LORazepam 2 MG/ML VIAL IV PRN (17:50)
[2018-05-06 18:57] LABS: Blood Urea Nitrogen 6 mg/dl (6-20)
[2018-05-06] MEDS ORDERED: POTASSIUM CHLORIDE 20 MEQ PACKET PO ONE (19:00)
[2018-05-06 23:52] LABS: Blood Urea Nitrogen 5 mg/dl (6-20)
[2018-05-07] MEDS: PIPERACILLIN SODIUM/TAZOBACTAM 3.375 GM in DEXTROSE 5% IN WATER 50 ML IV SCH ×5 (00:05→23:42)
[2018-05-07] MEDS: LORazepam 2 MG/ML VIAL IV PRN ×3 (02:11→23:24)
[2018-05-07 05:24] LABS: Basophils # (Auto) 0 K/mcL (0.0-0.3); Basophils % (Auto) 0.4 % (0.0-2.0); Eosinophils # (Auto) 0.1 K/mcL (0.0-0.7); Eosinophils % (Auto) 0.7 % (0.0-7.0); Granulocytes % (Auto) 65.8 % (38.0-78.0); Lymphocytes # (Auto) 2.2 K/mcL (1.5-4.8); Lymphocytes % (Auto) 25.6 % (15.5-49.0); Mean Cell Volume 92.1 fL (80.0-100.0); Mean Corpuscular HGB Conc 33.3 g/dL (31.0-36.0); Mean Corpuscular Hemoglobin 30.7 pg (26.0-34.0); Monocytes # (Auto) 0.7 K/mcL (0.1-0.9); Monocytes % (Auto) 7.5 % (1.0-12.0); Platelet Count 326 K/mcL (140-440); RBC 3.53 M/mcL (4.00-5.20); Red Cell Distribution Width 14.2 % (11.5-14.5)
[2018-05-07] MEDS: 0.9 % SODIUM CHLORIDE 10 ML SYRINGE IV SCH ×3 (05:34→21:07)
[2018-05-07 06:08] LABS: ALT/SGPT 32 U/l (0-40); Albumin 3.3 gm/dL (3.2-5.2); Albumin/Globulin Ratio 1.8 (1.0-2.3); Alkaline Phosphatase 88 U/L (39-117); Bilirubin,Direct < 0.2 mg/dL (0.0-0.3); Blood Urea Nitrogen 5 mg/dl (6-20); Gamma Glutamyl Transpeptidase 96 U/L (5-36); Uric Acid 1.8 mg/dL (2.5-8.0)
[2018-05-07] MEDS: 0.9 % SODIUM CHLORIDE 1,000 ML IV SCH (07:13)
[2018-05-07] MEDS: PANTOPRAZOLE 40 MG VIAL IV SCH ×2 (07:14→17:32)
[2018-05-07] MEDS ORDERED: POTASSIUM PHOSPHATE 40 MEQ in DEXTROSE 5% IN WATER 500 ML IV ONE (08:00)
[2018-05-07] MEDS ORDERED: METOPROLOL TARTRATE 50 MG TABLET PO ONE (08:24)
[2018-05-07] MEDS ORDERED: METOPROLOL TARTRATE 25 MG TABLET ONE ×2 (09:36→09:37)
[2018-05-07] MEDS ORDERED: IOPAMIDOL 150 ML BOTTLE IV ONE (11:19)
[2018-05-07 12:48] LABS: Blood Urea Nitrogen 4 mg/dl (6-20)
[2018-05-07] MEDS: FUROSEMIDE 20 MG/2 ML VIAL IV SCH (12:49)
[2018-05-07] MEDS: LIDOCAINE 5% OINT TUBE 35GM TOPICAL SCH ×2 (12:49→21:28)
[2018-05-07] MEDS: BACLOFEN 10 MG TABLET PO SCH ×3 (12:49→21:06)
--- NOTE | 2018-05-07 12:54 | Internal Med Progress Note ---
Medical - PN: Subj Patient information: Note initiated : 05/07/18 at 12:51 pm Service Date, if different from initiated Date: [] Patient: Clare Kaur a 48 y/o F admitted on 05/05/18 for body aches. Chief Complaint: [] Interval history: Ms. Kaur is a 48 year old F she has a history of fibromyalgia, that gets worse with changes in weather pattern according to the patient as well as her . The patient presents to the hospital today with not feeling well for the last week or so. The patient has had decreased oral intake for the last couple of days. Today the noticed that in addition to her usual exacerbation of pain due to fibromyalgia she was also altered. According to the she has a history of low sodium values and sometimes gets altered when that happens he therefore brought the patient to the emergency room for further evaluation. In the emergency room the patient was noted to be in significant pain and did not provide much history to myself or to the ER provider. Much of the history was obtained by talking to the patient's . The patient during my evaluation complained about severe substernal chest pain, this pain had started after she had presented to the ED on talking to the patient and , EKG showed T-wave inversions in lead I and aVL, no ST segment elevation. The patient had significantly low sodium at 110, potassium was 3.7, bicarb 17 creatinine 0.8 and glucose at 140. Her anion gap was 20. The patient had elevated CRP her WBC count was 16 hemoglobin 13 platelets 479, pro calcitonin was negative. Given that she had some confusion and acutely low- sodium she was admitted to the hospital for further management. The patient had a normal sodium 1 week ago. Later in the hospital the patient chest pain continued, her troponin was noted to be elevated at 0.2, patient received aspirin and sublingual nitro as well as a nitro patch the patient's symptoms gradually improved to a point where she had no longer any chest pain. Patient underwent a repeat troponin that was 0.17. EKG unchanged since admission. Case was discussed with Dr. 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 But in light of chest pain with mildly elevated troponins the stratification and further testing is warranted. Given that we do not have nuclear stress test in this facility, he advised to consider some kind for testing. I informed him that we do have echocardiogram as well as CT coronary angiogram. He noted that if these tests are negative and the patient does not have any further chest pain then she could follow-up as an outpatient with cardiology for further evaluation. Should the patient develop further chest pain then he would reconsider transferring the patient for an urgent cath. Nephrology was consulted for management of hyponatremia. 05/06 Patient seen and examined, complains of generalized pain, still has bilateral lower extremity pain this is a chronic pain for her. She did not have any recurrent chest pain. Echo was done which shows low normal ejection fraction normal left ventricular size, no regional wall motion abnormalities. CT angios of the heart is pending. The patient sodium overcorrected yesterday went eyes are has 126, patient was given desmopressin and D5 water, patient's sodium back down to 119. Will reassess and have close monitoring of the changes in patient's sodium. Apparently nephrology has signed out. 05/07 Pt seen examined no acute issues Na 119 still, d/c IVF, start on salt tablets and laisix to see she is now polyuric again, looks like her kidneys are dumping free fluid, we had slowed this down with use of desmopressin yesterday as she was correcting too fast. anticipate correction fo sodium moving forward. CT chest cardio angio pending plan of care reviewed with pt and , Pertinent ROS: Denies headache, dizziness Denies chest pain, palpitations Denies cough or shortness of breath Denies abdominal pain, nausea or vomiting. - Constitutional Vitals: Vital Signs Temp Pulse Resp BP Pulse Ox 98.7 F 63 16 96/67 100 05/07/18 12:00 05/07/18 11:30 05/07/18 12:00 05/07/18 12:00 05/07/18 12:00 Period Temp Pulse Resp BP Sys/Malik Pulse Ox Last 24 Hr 97.4 F-98.7 F 60-116 14-27 93-153/56-115 94-100 Intake and Output 05/06/18 05/07/18 05/07/18 21:59 05:59 13:59 Intake Total 855 / 855 170 / 170 1316 / 1316 Output Total 590 / 590 470 / 470 1725 / 1725 Balance 265 / 265 -300 / -300 -409 / -409 Weight 178 lb 4.8 oz Intake & Output: Intake & Output 05/06/18 05/07/18 05/07/18 21:59 05:59 13:59 Intake Total 855 / 855 170 / 170 1316 / 1316 Output Total 590 / 590 470 / 470 1725 / 1725 Balance 265 / 265 -300 / -300 -409 / -409 Weight 178 lb 4.8 oz Intake: IV 155 / 155 50 / 50 996 / 996 Sodium Chloride 0.9% 1,000 ml @ 105 / 105 946 / 946 50 mls/hr IV .Q20H [facility] Rx#: [id number] Zosyn 3.375 gm In Dextrose 5% 50 / 50 50 / 50 50 / 50 in Water 50 ml @ 100 mls/hr IV Q6H [facility] Rx#:[id number] Oral 700 / 700 120 / 120 320 / 320 Output: Urine Catheter Amount 590 / 590 470 / 470 1725 / 1725 Other: Meal Dinner Breakfast Percent of Meal Consumed 25% 0% Feeding Ability Independent # Bowel Movements 1 Exam: Constitutional; Afebrile, cooperative, alert, not in distress. Eyes- No icterus, , No periorbital swelling Ears- Ext ear normal, hearing normal to conversation. Neck- Midline trachea, supple Respiratory system: Air Entry equal on both sides, No crackles or wheezing, no rhonchi. CVS- Rate rhythm regular, S1,S2 heard, no gallop, no rub. 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 Medical - PN: Obj Da - Labs CBC & Chem 7: 05/07/18 04:00 05/07/18 11:40 Labs: Abnormal Lab Results 05/07/18 05/07/18 05/07/18 11:40 04:00 04:00 WBC RBC 3.53 L Hgb 10.8 L Hct 32.5 L Plt Count Gran % Lymph % (Auto) Gran # Lymph # (Auto) Sodium 119 L* 119 L* Chloride 89 L 87 L Carbon Dioxide 21 L Anion Gap BUN 4 L 5 L Glucose 120 H Osmolality Uric Acid 1.8 L Calcium 8.5 L 8.4 L Phosphorus 1.8 L GGT 96 H AST ALT Alkaline Phosphatase Lactate Dehydrogenase 259 H Troponin T C-React Prot High Sens Total Protein 5.1 L Globulin 1.8 L Urine Protein Urine Glucose (UA) Urine Ketones Urine Nitrate Urine Urobilinogen Ur Squamous Epith Cells Urine Bacteria Urine Opiates Screen U Marijuana (THC) Screen 05/06/18 05/06/18 05/06/18 22:10 18:03 14:03 WBC RBC Hgb Hct Plt Count Gran % Lymph % (Auto) Gran # Lymph # (Auto) Sodium 118 L* 116 L* 116 L* Chloride 84 L 84 L 86 L Carbon Dioxide 19 L Anion Gap 7.0 L BUN 5 L 5 L Glucose 107 H 131 H 134 H Osmolality Uric Acid Calcium 8.3 L 8.5 L Phosphorus GGT AST ALT Alkaline Phosphatase Lactate Dehydrogenase Troponin T C-React Prot High Sens Total Protein Globulin Urine Protein Urine Glucose (UA) Urine Ketones Urine Nitrate Urine Urobilinogen Ur Squamous Epith Cells Urine Bacteria Urine Opiates Screen U Marijuana (THC) Screen 05/06/18 05/06/18 05/06/18 11:58 10:17 06:00 WBC RBC Hgb Hct Plt Count Gran % Lymph % (Auto) Gran # Lymph # (Auto) Sodium 119 L* 124 L Chloride 87 L 90 L Carbon Dioxide 20 L Anion Gap BUN Glucose 108 H 117 H Osmolality Uric Acid Calcium Phosphorus GGT AST ALT Alkaline Phosphatase Lactate Dehydrogenase Troponin T C-React Prot High Sens Total Protein Globulin Urine Protein Urine Glucose (UA) Urine Ketones Urine Nitrate Urine Urobilinogen Ur Squamous Epith Cells Urine Bacteria Urine Opiates Screen Suspect positive A U Marijuana (THC) Screen Suspect positive A 05/06/18 05/06/18 05/05/18 02:00 02:00 22:30 WBC RBC 3.77 L Hgb 11.3 L Hct 33.7 L Plt Count Gran % Lymph % (Auto) Gran # Lymph # (Auto) Sodium 126 L 125 L Chloride 93 L 92 L Carbon Dioxide 21 L Anion Gap BUN 4 L 4 L Glucose 113 H Osmolality Uric Acid Calcium Phosphorus 2.5 L GGT 123 H AST 58 H ALT 41 H Alkaline Phosphatase Lactate Dehydrogenase 261 H Troponin T C-React Prot High Sens Total Protein 5.4 L Globulin 1.9 L Urine Protein Urine Glucose (UA) Urine Ketones Urine Nitrate Urine Urobilinogen Ur Squamous Epith Cells Urine Bacteria Urine Opiates Screen U Marijuana (THC) Screen 05/05/18 05/05/18 05/05/18 18:48 18:48 16:36 WBC RBC Hgb Hct Plt Count Gran % Lymph % (Auto) Gran # Lymph # (Auto) Sodium 117 L* 115 L* Chloride 81 L 81 L Carbon Dioxide 21 L 21 L Anion Gap BUN 3 L 4 L Glucose 119 H Osmolality 239 L Uric Acid Calcium Phosphorus GGT AST ALT Alkaline Phosphatase Lactate Dehydrogenase Troponin T 0.17 H* C-React Prot High Sens Total Protein Globulin Urine Protein Urine Glucose (UA) Urine Ketones Urine Nitrate Urine Urobilinogen Ur Squamous Epith Cells Urine Bacteria Urine Opiates Screen U Marijuana (THC) Screen 05/05/18 05/05/18 05/05/18 15:40 15:00 15:00 WBC RBC Hgb Hct Plt Count Gran % Lymph % (Auto) Gran # Lymph # (Auto) Sodium 110 L* Chloride 73 L Carbon Dioxide 17 L Anion Gap 20.0 H BUN 4 L Glucose 140 H Osmolality Uric Acid Calcium Phosphorus GGT AST 73 H ALT 50 H Alkaline Phosphatase 123 H Lactate Dehydrogenase Troponin T 0.20 H* C-React Prot High Sens 3.7 H Total Protein Globulin Urine Protein 30 A Urine Glucose (UA) 50 A Urine Ketones 80 A Urine Nitrate Pos A Urine Urobilinogen 2.0 A Ur Squamous Epith Cells 7 H Urine Bacteria Mod A Urine Opiates Screen U Marijuana (THC) Screen 05/05/18 15:00 WBC 16.5 H RBC Hgb Hct Plt Count 479 H Gran % 87.5 H Lymph % (Auto) 7.5 L Gran # 14.4 H Lymph # (Auto) 1.2 L Sodium Chloride Carbon Dioxide Anion Gap BUN Glucose Osmolality Uric Acid Calcium Phosphorus GGT AST ALT Alkaline Phosphatase Lactate Dehydrogenase Troponin T C-React Prot High Sens Total Protein Globulin Urine Protein Urine Glucose (UA) Urine Ketones Urine Nitrate Urine Urobilinogen Ur Squamous Epith Cells Urine Bacteria Urine Opiates Screen U Marijuana (THC) Screen Meds: Medications Acetaminophen (Tylenol) 650 mg PO Q4-6HP PRN PRN Reason: PAIN/FEVER > 101 Al Hydrox/Mg Hydrox/Simethicone (Maalox) 30 ml PO Q4-6HP PRN PRN Reason: Dyspepsia Baclofen (Lioresal) 10 mg PO TID [facility] Last Admin: 05/07/18 12:49 Dose: Not Given Ceftriaxone Sodium (Rocephin) 1 gm IV DAILY [facility] Last Admin: 05/06/18 15:14 Dose: 1 gm Furosemide (Lasix) 20 mg IV DAILY [facility] Last Admin: 05/07/18 12:49 Dose: Not Given Heparin Sodium (Porcine) (Heparin) 5,000 unit SQ Q12 [facility] Last Admin: 05/06/18 21:06 Dose: 5,000 unit Acetaminophen (Ofirmev) 1,000 mg in 100 mls @ 200 mls/hr IV Q6HP PRN PRN Reason: PAIN/FEVER > 101 Piperacillin Sod/Tazobactam (Sod 3.375 gm/ Dextrose) 50 mls @ 100 mls/hr IV Q6H [facility] Last Infusion: 05/07/18 06:49 Dose: Infused Lidocaine (Lidocaine 5% Oint) 1 dose TOPICAL DAILY [facility] Last Admin: 05/07/18 12:49 Dose: Not Given Lorazepam (Ativan) 0.5 mg IV Q2HP PRN PRN Reason: ANXIETY/SEDATION Last Admin: 05/07/18 09:44 Dose: 0.5 mg Morphine Sulfate (Morphine) 4 mg IV Q1HP PRN PRN Reason: PAIN LEVEL > 6 Naloxone HCl (Narcan) 0.1 mg IV Q2MIN PRN PRN Reason: Opiate Reversal Nitroglycerin (Nitrostat) 0.4 mg SL Q5M PRN PRN Reason: Chest Pain Ondansetron HCl (Zofran) 4 mg IV Q4-6HP PRN PRN Reason: Nausea And Vomiting Pantoprazole Sodium (Protonix) 40 mg IV BIDAC [facility] Last Admin: 05/07/18 07:14 Dose: 40 mg Promethazine HCl (Phenergan) 12.5 mg IV Q4-6HP PRN PRN Reason: Nausea And Vomiting Last Admin: 05/06/18 22:01 Dose: 12.5 mg Sodium Chloride (Saline Flush) 10 ml IV Q8 [facility] Last Admin: 05/07/18 05:34 Dose: Not Given Sodium Chloride (Sodium Chloride) 1 gm PO TID [facility] Sumatriptan Succinate (Imitrex) 50 mg PO PRN PRN PRN Reason: Migraine Headache Last Admin: 05/06/18 15:15 Dose: 50 mg Medical - PN: A/P - Time Spent With Patient Total time spent is greater than 50% in coordination of care (as documented) at patient's floor/unit and/or counseling patient: - Narrative A/P Narrative: A/P Acute chest pain- etiology? resolved with NTG, asa given, a1c neg for dm, lipid profile good, ldl < 70, echo neg, await coronorary angiogram CT, outpatietn cardiology eval, will start on asa 81 Hyponatremia- THC positive on utox, but no pcp, siadh from pain ? sodium this AM 119, had gone as high as 126, goal is 10-12meq over 24 hrs, plan for 130 today. off iVF, on salt tablets and lasix, pt is diuresing well now. will see how she does. fibromyalgia- monitor, has outpatient follow up with dr birmingham continue same, lidocane ointment for topical application migraine- sumatriptan regular diet, free water restriction to 1500ml full code Medical - PN: Qual - VTE Deep Vein Thrombosis/Pulmonary Embolism Present on Admission: No
[2018-05-07] MEDS: HEPARIN 5,000 UNIT/ML VIAL SQ SCH ×2 (13:01→21:05)
[2018-05-07] MEDS: cefTRIAXone 1 GM VIAL IV SCH (13:01)
[2018-05-07] MEDS: SODIUM CHLORIDE 1 GM TABLET PO SCH ×3 (13:02→21:06)
--- NOTE | 2018-05-07 14:16 | Cat Scan Report ---
CLINICAL INFORMATION: Chest pain COMPARISON: None. TECHNIQUE: Metoprolol was administered by hospitalist as an inpatient. Please see medication orders for dosages. Five minutes before scanning, sublingual nitroglycerin spray was given. 0.625 mm noncontrast, prospectively gated images were obtained through the cardiac region. Following timing run, 100 cc of Visipaque 320 followed by 50 cc normal saline flush were administered intravenously, and 0.625 mm axial images were repeated through the cardiac region. Using retrospective gating, axial images were reconstructed at 5% increments of the R-R interval 65 through 85. CPR images were reconstructed at a [employer] cardiac IQ workstation.The exam was performed using radiation dose optimization techniques including, but not limited to, automated exposure control, adjustment of the mA and/or kV according to patient size and use of iterative reconstruction technique. FINDINGS: Left dominant coronary system appreciated with no evidence of anomalies or tunneling. The left main, LAD, all diagonal, circumflex, marginal, right, posterior descending and posterior lateral branches are all widely patent without appreciable plaque. The heart is normal in size and configuration with normal in developed chambers. Tricuspid aortic and bicuspid mitral valves appear morphologically normal. The the myocardium and pericardium are unremarkable.. The visualized thoracic aorta and pulmonary arteries are well opacified and normal in contour and caliber. Lung windows show small bilateral pleural effusions and and interstitial and patchy groundglass airspace disease within the visualized mid and lower lungs. IMPRESSION: 1. Left dominant coronary system without anomaly or tunneling. All coronaries are widely patent - no appreciable as chronic plaque 2. Heart is normal in size and morphology without focal pathology 3. The thoracic aorta and pulmonary arteries, visualized the cardiac level, are unremarkable 4. Limited visualization of the lungs (incomplete visualization of the lower lobes, inferior right middle lobe and lingula) show patchy groundglass infiltrates, mild interstitial disease and small/moderate bilateral pleural effusions. Consider: High-resolution chest CT for complete lung evaluation if pre-existing lung disease is not previously known Interpreted and Authenticated by: Donte Rivera 05/07/18
[2018-05-07] MEDS: OXYBUTYNIN CHLORIDE 5 MG TAB.XL.24H PO SCH (15:45)
[2018-05-07 17:51] LABS: Blood Urea Nitrogen 4 mg/dl (6-20)
[2018-05-07 21:59] LABS: Blood Urea Nitrogen 5 mg/dl (6-20)
[2018-05-08] MEDS: PIPERACILLIN SODIUM/TAZOBACTAM 3.375 GM in DEXTROSE 5% IN WATER 50 ML IV SCH (05:21)
[2018-05-08] MEDS: 0.9 % SODIUM CHLORIDE 10 ML SYRINGE IV SCH (05:21)
[2018-05-08 06:14] LABS: ALT/SGPT 29 U/l (0-40); Albumin 3.4 gm/dL (3.2-5.2); Albumin/Globulin Ratio 1.8 (1.0-2.3); Alkaline Phosphatase 88 U/L (39-117); Bilirubin,Direct < 0.2 mg/dL (0.0-0.3); Blood Urea Nitrogen 5 mg/dl (6-20); Gamma Glutamyl Transpeptidase 105 U/L (5-36); Uric Acid 1.6 mg/dL (2.5-8.0)
[2018-05-08] MEDS: PANTOPRAZOLE 40 MG VIAL IV SCH (07:17)
[2018-05-08] MEDS: PROMETHAZINE 25 MG/ML VIAL IV PRN (08:09)
[2018-05-08] MEDS: SUMAtriptan SUCCINATE 50 MG TABLET PO PRN (08:23)
[2018-05-08] MEDS ORDERED: ASPIRIN 81 MG TAB.CHEW PO SCH (09:00)
[2018-05-08] MEDS: cefTRIAXone 1 GM VIAL IV SCH (09:33)
[2018-05-08] MEDS: BACLOFEN 10 MG TABLET PO SCH (09:34)
[2018-05-08] MEDS: OXYBUTYNIN CHLORIDE 5 MG TAB.XL.24H PO SCH (09:34)
[2018-05-08] MEDS: FUROSEMIDE 20 MG/2 ML VIAL IV SCH (09:34)
[2018-05-08] MEDS: HEPARIN 5,000 UNIT/ML VIAL SQ SCH (09:34)
[2018-05-08] MEDS: SODIUM CHLORIDE 1 GM TABLET PO SCH (09:34)
--- NOTE | 2018-05-08 09:45 | Discharge Summary ---
Medical - DS: Prov Patient information: Note initiated : 05/08/18 at 9:41 am Service Date, if different from initiated Date: [] Patient: Clare Kaur 48 y/o F admitted on 05/05/18 for body aches. Chief Complaint: [] Date of admission: 05/05/18 17:40 Discharge date: 05/08/18 Primary care physician: Kelsi Heredia Admitting clinician: Jesus Jorge Consults: 05/05/18 16:08 Consult to Physician [CONS] Stat Comment: Consulting Provider: Jesus Jorge Reason For Exam: Physician to Consult Discharging clinician: Jesus Jorge Medical - DS: Meds - Discharge Medications Prescriptions: Aspirin [Aspirin EC] 81 mg PO AC #100 tablet. Active and Home Medications: Home Medications baclofen 10 mg tablet 20 mg PO Q6H PRN tab 01/27/16 [History Confirmed Last Taken Unknown] ferrous sulfate 325 mg (65 mg iron) tablet 325 mg PO QDAY tab 01/27/16 [ History Confirmed 05/05/18 Last Taken Unknown] lidocaine 5 % topical patch 5 % TRANSDERMA DAILY patch 01/27/16 [History Confirmed 05/05/18 Last Taken Unknown] omeprazole 40 mg capsule,delayed release 40 mg PO QDAY 01/27/16 [History Confirmed 05/05/18 Last Taken Unknown] promethazine 25 mg tablet 25 mg PO TID PRN tab 01/27/16 [History Confirmed Last Taken Unknown] Nadolol 20 mg PO HS 05/07/18 [History Confirmed 05/07/18 Last Taken Unknown] Oxybutynin Chloride [Oxybutynin Chloride ER] 10 mg PO DAILY 05/07/18 [History Confirmed 05/07/18 Last Taken Unknown] SUMAtriptan SUCCINATE [Imitrex] 50 mg PO PRN PRN MDD 2 05/07/18 [History Confirmed 05/07/18 Last Taken Unknown] Zonisamide 100 mg PO HS 05/07/18 [History Confirmed 05/07/18 Last Taken Unknown] hydrOXYzine 25 mg PO BID 05/07/18 [History Confirmed 05/07/18 Last Taken Unknown ] Medical - DS: Hosp Hospital course: Ms. Kaur is a 48 year old F she has a history of fibromyalgia, that gets worse with changes in weather pattern according to the patient as well as her . The patient presents to the hospital with not feeling well for the last week or so. The patient has had decreased oral intake for the last couple of days. Today the noticed that in addition to her usual exacerbation of pain due to fibromyalgia she was also altered. According to the she has a history of low sodium values and sometimes gets altered when that happens he therefore brought the patient to the emergency room for further evaluation. In the emergency room the patient was noted to be in significant pain and did not provide much history to myself or to the ER provider. Much of the history was obtained by talking to the patient's . The patient during my evaluation complained about severe substernal chest pain, this pain had started after she had presented to the ED on talking to the patient and , EKG showed T-wave inversions in lead I and aVL, no ST segment elevation. The patient had significantly low sodium at 110, potassium was 3.7, bicarb 17 creatinine 0.8 and glucose at 140. Her anion gap was 20. The patient had elevated CRP her WBC count was 16 hemoglobin 13 platelets 479, pro calcitonin was negative. Given that she had some confusion and acutely low- sodium she was admitted to the hospital for further management. The patient had a normal sodium 1 week ago. Later in the hospital the patient chest pain continued, her troponin was noted to be elevated at 0.2, patient received aspirin and sublingual nitro as well as a nitro patch the patient's symptoms gradually improved to a point where she had no longer any chest pain. Patient underwent a repeat troponin that was 0.17. EKG unchanged since admission. Case was discussed with Dr. Kaur land clearer in [place] who advised that patient does not seem to have an acute coronary event may have had a coronary spasm. But in light of chest pain with mildly elevated troponins the stratification and further testing is warranted. Given that we do not have nuclear stress test in this facility, he advised to consider some kind for testing. I informed him that we do have echocardiogram as well as CT coronary angiogram. He noted that if these tests are negative and the patient does not have any further chest pain then she could follow-up as an outpatient with cardiology for further evaluation. Should the patient develop further chest pain then he would reconsider transferring the patient for an urgent cath. Nephrology was consulted for management of hyponatremia. Hyponatremia- Etiology? labs show SIADH, she was treated with IVF, and free water restriction. The patient sodium improved to 133 at discharge over 3 days. The patient has been advised to limit her free water intake to 1500ml 24 hrs. She will benefit from a repeat sodium check in 1 week by her PCP Headache- CT head neg, [facility] migraine headaches, sumatriptan given, she is also on zonisamide which can cause hyponatremia in some patients, less than 1% as per litrature, this drug would also explain the metabolic acidosis on presentation. I am not stopping this medication now, should hyponatremia persist again, it would be worthwhile to discontinue this medicatio. Fibromyalgia- FOllow up with rheumatology, has appointment today at 3pm UTI- UA suggestive of UTI, 3 days of rocephin given. No need for further treatment. Chest Pain/ NSTEMI- Patient during the ER v isit developed chest pain, she had mild rise in troponin values, to 0.2, trended down to 0.17, EKG showed t wave inversion in 1 and avl, no other acute changes, the patient case was reviewed with Dr Kaur in [place] who noted that patient did not need urgent cath, but would need risk stratification. Echo done shows no wall motion abnormality, low normal ejection fraction. CT Angio coronaries shows clean coronaries. LDL is not elevated, a1c is normal. Patient started on low dose aspirin, will refer to cardiology as outpatient for further evaluation. Rest of the stay in the hospital was uneventful, no changes made to [facility] home meds. Discharge diagnosis: Hyponatremia, chest pain - Time Spent with Patient Total time spent providing and/or coordinating discharge services: Greater than 30 minutes Medical - DS: Exam - Constitutional Vitals: Vital Signs Temp Pulse Resp BP BP Pulse Ox 05/08/18 04:00 99/75 100 05/08/18 00:01 98.8 F 16 94/65 96 05/07/18 23:01 111/84 100 05/07/18 20:01 121/76 98 05/07/18 19:34 98.6 F 20 106/74 98 05/07/18 18:30 98 05/07/18 16:00 97.9 F 67 H 116/95 20 L 07/01/18 15:01 70 113/83 99 07/01/18 15:00 20 113/89 100 05/07/18 14:01 68 106/79 100 05/07/18 13:00 64 105/74 98 05/07/18 12:01 60 96/67 98 05/07/18 12:00 98.7 F 16 96/67 100 05/07/18 11:30 63 98 05/07/18 11:01 60 94/74 100 05/07/18 10:45 72 95/75 95 Intake and Output 05/07/18 05/08/18 05/08/18 21:59 05:59 13:59 Intake Total 50 / 50 410 / 410 50 / 50 Output Total 1065 / 1065 1160 / 1160 Balance -1015 / -1015 -750 / -750 50 / 50 Intake: IV 50 / 50 50 / 50 50 / 50 Zosyn 3.375 gm In Dextrose 5% 50 / 50 50 / 50 50 / 50 in Water 50 ml @ 100 mls/hr IV Q6H [facility] Rx#:[id number] Oral 360 / 360 Output: Urine Catheter Amount 1065 / 1065 1160 / 1160 Other: Meal Dinner Percent of Meal Consumed 100% Feeding Ability Assist with Tray Set Up Weight 179 lb Additional comments: Constitutional; Afebrile, cooperative, alert, not in distress. Eyes- No icterus, , No periorbital swelling Ears- Ext ear normal, hearing normal to conversation. Neck- Midline trachea, supple Respiratory system: Air Entry equal on both sides, No crackles or wheezing, no rhonchi. CVS- Rate rhythm regular, S1,S2 heard, no gallop, no rub. 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 Medical - DS: Data Procedures and tests throughout hospitalization: CT Coronaries IMPRESSION: 1. Left dominant coronary system without anomaly or tunneling. All coronaries are widely patent - no appreciable as chronic plaque 2. Heart is normal in size and morphology without focal pathology 3. The thoracic aorta and pulmonary arteries, visualized the cardiac level, are unremarkable 4. Limited visualization of the lungs (incomplete visualization of the lower lobes, inferior right middle lobe and lingula) show patchy groundglass infiltrates, mild interstitial disease and small/moderate bilateral pleural effusions. Consider: High-resolution chest CT for complete lung evaluation if pre-existing lung disease is not previously known Head CT IMPRESSION: Mild global cerebral swelling likely related to hyponatremia Labs on day of discharge: Labs from last 24 hours 05/08/18 05/07/18 05/07/18 04:00 21:15 17:03 Sodium 133 127 L 122 L Potassium 3.6 4.0 4.2 Chloride 98 95 L 90 L Carbon Dioxide 22 22 19 L Anion Gap 13.0 10.0 13.0 BUN 5 L 5 L 4 L Creatinine 1.1 1.1 0.9 GFR Calculation 58 58 75 Glucose 81 98 107 H Uric Acid 1.6 L Calcium 8.8 9.1 9.1 Phosphorus 3.5 Magnesium 1.9 Total Bilirubin 0.2 Direct Bilirubin < 0.2 GGT 105 H AST 21 ALT 29 Alkaline Phosphatase 88 Lactate Dehydrogenase 238 Total Protein 5.3 L Albumin 3.4 Globulin 1.9 L Albumin/Globulin Ratio 1.8 Triglycerides 107 05/07/18 11:40 Sodium 119 L* Potassium 4.1 Chloride 89 L Carbon Dioxide 21 L Anion Gap 9.0 BUN 4 L Creatinine 0.8 GFR Calculation 86 Glucose 120 H Uric Acid Calcium 8.5 L Phosphorus Magnesium Total Bilirubin Direct Bilirubin GGT AST ALT Alkaline Phosphatase Lactate Dehydrogenase Total Protein Albumin Globulin Albumin/Globulin Ratio Triglycerides Medical - DS: A/P - Patient/Caregiver Discharge Instructions Activity: increase activity as tolerated Diet: Regular Diet Additional Instructions: Please restriction free water to 1500ml over 24 hours, Please follow up with your PCP in 1 week, make sure your doctor checks your Sodium level in 1 week to make sure it is stable. 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 Go to the ER if you have chest pain, shortness of breath, fever or any other acute concerning symptom - Follow up Plan Follow up with: Kelsi Heredia MD [Primary Care Provider] - Blaine Gomes MD [Physician] - Disposition: Home, Self-Care Prognosis: Fair Rehab Potential: Fair I certify that the patient requires SNF services: No Overall status at discharge: patient is back to baseline Medical - DS: Qual - VTE Deep Vein Thrombosis/Pulmonary Embolism Present on Admission: No
[2018-05-08] MEDS: LIDOCAINE 5% OINT TUBE 35GM TOPICAL SCH (09:56)
== END 2018-05-08 12:45 | disposition home or self-care (01) | DRG 640 ==
LOC: ED 14:25 → ICU 17:40
PROVIDERS: ADMIT Internal Medicine; ATTEND Internal Medicine